=== PATIENT | male | born 1985 | race Caucasian/White ===

== ENCOUNTER 2021-07-22 00:39 | Emergency (ER) | payer OTHER ==
[2021-07-22 00:52] VITALS: BMI 25.5
[2021-07-22] MEDS ORDERED: FAMOTIDINE 20 MG/50 ML IVPB 20 MG/50 ML MG IVPB ONE ×2 (00:56→01:11)
[2021-07-22] MEDS ORDERED: SODIUM CHLORIDE 1,000 ML IV STA (00:56)
[2021-07-22 03:22] VITALS: PULSE 78
[2021-07-22 05:50] VITALS: BP 115/65
== END 2021-07-22 05:54 | disposition home or self-care (01) ==
LOC: JER 00:39
PROC: 3E033GC Introduction of Other Therapeutic Substance into Peripheral Vein, Percutaneous Approach (ICD-10-PCS; principal; 2021-07-22)
PROC: 3E0337Z Introduction of Electrolytic and Water Balance Substance into Peripheral Vein, Percutaneous Approach (ICD-10-PCS; 2021-07-22)
DX: T78.2XXA Anaphylactic shock, unspecified, initial encounter (principal)
CPT/HCPCS: 99284-25